=== PATIENT | female | born 1930 | race Caucasian/White ===

== ENCOUNTER 2016-04-02 19:47 | Emergency (ER) | payer MEDICARE, OTHER ==
[2016-04-02 20:06] VITALS: TEMP 97.6; BMI 16.9
[2016-04-02 20:23] LABS: AUTOMATED BASOPHIL 1.1 % (0-2); AUTOMATED EOSINOPHIL 0.4 % (0-5); AUTOMATED LYMPH 31.4 % (17-44); AUTOMATED MONOCYTE 5.1 % (3-10); MPV 8.9 fL (7.4-10.4)
[2016-04-02 20:26] LABS: PARTIAL THROMB. TIME 22.3 SEC (22-35)
[2016-04-02 20:37] LABS: BLOOD UREA NITROGEN 9 MG/DL (7-17); CALCIUM 9.4 MG/DL (8.4-10.2); CALCULATED OSMOLALITY 250 MOs/Kg (270-290); CHLORIDE 94 mEq/L (98-107); CPK TOTAL WITH POSSIBLE MB < 20 IU/L (30-134); GLUCOSE 138 MG/DL (70-99); SODIUM LEVEL 129 mEq/L (137-146); TOTAL PROTEIN 6.7 G/DL (6.3-8.2)
[2016-04-02] MEDS ORDERED: OXYCODONE HCL 5 MG TABLET PO ONE (21:03)
--- NOTE | 2016-04-02 21:05 | DIRPT ---
CLINICAL DATA: 86-year-old female with chest pain and lower abdominal pain for the past 2 weeks. Shortness of breath. EXAM: PORTABLE CHEST 1 VIEW COMPARISON: Chest x-ray 11/21/2015. FINDINGS: Lung volumes are normal. No consolidative airspace disease. No pleural effusions. No pneumothorax. No pulmonary nodule or mass noted. Pulmonary vasculature and the cardiomediastinal silhouette are within normal limits. Atherosclerosis in the thoracic aorta. IMPRESSION: 1. No radiographic evidence of acute cardiopulmonary disease. 2. Atherosclerosis. Electronically Signed By: Jj Tenorio M.D. On: 04/02/2016 21:02
[2016-04-02] MEDS ORDERED: LORAZEPAM 1 MG TAB PO ONE (21:43)
--- NOTE | 2016-04-02 21:53 | EDPRACDOC ---
- General Information Chief Complaint: Chest Pain Stated Complaint: CHEST PAIN Time Seen by Provider: 04/02/16 20:51 Information Source: Patient Mode of Arrival: Car Home Medications: Home Medications Denosumab [Prolia] 60 mg SQ .Q 6MONTHS 04/06/13 Losartan Potassium [Cozaar] 25 mg PO DAILY 04/06/13 Simvastatin [Zocor] 20 mg PO HS 04/06/13 Aspirin [Ecotrin] 81 mg PO DAILY 05/30/13 Travoprost (Benzalkonium) [Travatan 0.004% Eye Drop] 1 drop OU HS 05/30/13 FA/Mv,Ca,Iron,Min/Lycopene/Lut [Centrum Tablet] 1 tab PO DAILY 12/10/14 [place]-3 Fatty Acids/Fish Oil [Fish Oil 1,000 mg Capsule] 1 cap PO DAILY Quetiapine Fumarate [Seroquel] 50 mg PO HS 12/10/14 Vitamin B Complex [B Complex] 1 tab PO DAILY 03/27/15 Metformin HCl [Metformin HCl ER] 500 mg PO DAILY 08/10/15 Levothyroxine [Synthroid, Levoxyl] 75 mcg PO DAILY 08/24/15 Sodium Chloride 1 gm PO DAILY 08/24/15 Pantoprazole Sodium 40 mg PO BID 10/16/15 Temazepam [Restoril] 30 mg PO HS 10/16/15 Sucralfate [Carafate] 1 gm PO QID 11/09/15 Calcium Carbonate [Tums] 300 mg PO .TID AFTER MEALS 11/12/15 Polyethylene Glycol 3350 [Miralax] 17 gm PO DAILY PRN 11/12/15 Wheat Dextrin [Benefiber] 1 kennedy PO QAM 11/12/15 Gabapentin 100 mg PO DAILY 04/02/16 Lorazepam [Ativan] 1 mg PO BID #60 tab 04/02/16 Ranitidine HCl [Zantac] 300 mg PO DAILY #30 tablet 04/02/16 Allergies/Adverse Reactions: Allergies Allergy/AdvReac Type Severity Reaction Status Date / Time No Known Allergies Allergy Verified 11/21/15 15:34 - History of Present Illness Onset: 1 DAY HPI: PT PRESENTS TODAY WITH CP X 2 WEEKS. PT VERY POOR HISTORIAN AND FAMILY UNSURE WELL. PER FAMILY, PT HAS BEEN IN THE HOSPITAL SEVERAL TIMES OVER THE PAST 6 MONTHS WITH CP. SHE HAD RECENT ADMISSION TO [facility] FOR CARDIAC R/O AND "THEY DID 2 KINDS OF TESTS AND BOTH WERE NORMAL". PT STATES THAT HER ENTIRE CHEST WALL HURTS. PT RESTING UPON MY ARRIVAL, BUT WHEN I BEGIN THE EXAM, PT BREATHES HARDER AND STATES "MY CHEST HURTS". OLD RECORDS REVIEWED FELT THAT THIS WAS PREVIOUSLY CAUSED BY ANXIETY. DENIES FEVER, COUGH/CONGESTION, ABD PAIN , N/V/D. WILL OBTAIN OLD RECORDS FROM [facility]. Chest Pain Location: Reports: Right Chest, Left Chest Pain Radiation: Reports: None Symptoms Occur: Reports: Suddenly Cardiac History of: Reports: Stress Test Medications within 24 Hours: Reports: None Prehospital Care: Reports: None Pain Came On: Reports: Suddenly Pain Status: Present Now Pain Description: Reports: Aching Pain Severity: Moderate ED Past Medical History - History Reviewed Yes Nurses notes reviewed and agree except as marked - Patient Medical History Neurological History: Reports: Dementia. Denies: Cerebrovascular Accident Cardiac History: Reports: Hypertension, Hypercholesterolemia, Valvular Heart Disease Respiratory History: Reports: Pneumonia GI/ History: Reports: Renal Disease, Gastroesophageal Reflux, Diverticulosis Musculoskeletal History: Reports: Arthritis, Osteoarthritis Psychological History: Reports: Anxiety. Denies: Depression, Bipolar Disorder, Substance Use Disorder Systemic History: Reports: Diabetes Surgical History: Reports: Cholecystectomy (Just 5 days ago.), Tonsillectomy/ Adnoidectomy - Family Medical History Reports: Hypertension, Diabetes. Denies: Cancer, Stroke, Cardiac Disorders - Social Medical History Smoking Status: Never smoker Social History: Denies: Substance Use Disorder EDM Review of Systems - Review of Systems ROS Negative Except as Marked: Yes All systems reviewed and were negative except as marked ROS Unobtainable: Yes Hx Limited due to age/level of understanding of patient, Yes Limited due to inability of parents to provide information Constitutional: No Symptoms Reported Respiratory: No Symptoms Reported Cardiovascular: Chest Pain Gastrointestinal: No Symptoms Reported Neurological: No Symptoms Reported Musculoskeletal: No Symptoms Reported Integumentary: No Symptoms Reported - Physical Exam Constitutional: Alert, Agitated, Distress Oriented to: Unable to Test Last recorded Vital Signs: Last Vital Signs Temp 97.6 F 04/02/16 19:56 Pulse 85 04/02/16 20:53 Resp 20 04/02/16 20:53 BP 152/67 04/02/16 20:53 Pulse Ox 98 04/02/16 20:53 Oxygen Pulse Oxygen Saturation 98 O2 Device Room Air Oxygen Flow Rate Fraction of Inspired Oxygen ( FIO2) - HEENT Head: Normal Eye Exam: Normal Neck: Normal, Denies Pain, Midline - Respiratory/Cardiovascular Respiratory: Normal - CTA Cardiovascular: Normal - GI Palpation: Normal Tenderness: Non tender - Musculoskeletal Back: Normal Extremities: Normal - Integumentary Skin: Normal Lymphatics: Normal - Neurologic Cerebellar: Unable to Test Mood Description: Anxious Thought: Coherent ED Chest Pain Exam - Respiratory/Cardiovascular Respiratory: Normal - CTA Cardiovascular/Chest: Normal - Action ASA given in the ED: No - Re-evaluation Re-evaluation 1 Re-evaluation Time: 23:47 THROUGHOUT THE STAY, PT HAS HAD MULTIPLE DIFFERING COMPLAINTS OF "ALL OVER CHEST WALL PAIN" TO "BELLY BURNING" AND THEN STATING THAT SHE "JUST NEEDS TO EAT SOMETHING AND SHE WOULD BE FINE". PAIN IS FELT NOT TO BE CARDIAC RELATED. PT HAD CATH AT [facility] NOV 2014 AND WAS CLEAR. 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 CASE DISCUSSED WITH DR. MCKEON AND PT OK TO HOME. Re-evaluation 2 Re-evaluation Time: 00:18 PT NOW EATING AND STATES THAT SHE FEELS MUCH BETTER; I BELIEVE THIS IS MORE GI RELATED. RECORDS OBTAINED FROM [facility] AND PT HAD CLEAN CATH NOV 2014 - Results 04/02/16 20:05 04/02/16 20:05 WBC 4.3 xk/uL (3.8-10.8) 04/02/16 20:05 RBC 4.56 xM/uL (4.20-5.40) 04/02/16 20:05 Hgb 13.7 g/dL (12.0-16.0) 04/02/16 20:05 Hct 41.0 % (36-47) 04/02/16 20:05 MCV 90 fL (81-99) 04/02/16 20:05 MCH 30.0 pg (27-32) 04/02/16 20:05 MCHC 33.3 g/dl (33-36) 04/02/16 20:05 RDW 13.9 % (11.5-14.5) 04/02/16 20:05 Plt Count 190 xk/uL (130-400) 04/02/16 20:05 MPV 8.9 fL (7.4-10.4) 04/02/16 20:05 Neut % (Auto) 62.0 % (45-76) 04/02/16 20:05 Lymph % (Auto) 31.4 % (17-44) 04/02/16 20:05 [place] % (Auto) 5.1 % (3-10) 04/02/16 20:05 Eos % (Auto) 0.4 % (0-5) 04/02/16 20:05 Baso % (Auto) 1.1 % (0-2) 04/02/16 20:05 Absolute Neuts (auto) 2.67 xk/uL (1.7-8.2) 04/02/16 20:05 Absolute Lymphs (auto) 1.33 xk/uL (0.65-4.75) 04/02/16 20:05 PT 10.3 SEC (9.2-11.2) 04/02/16 20:05 INR 1.0 04/02/16 20:05 APTT 22.3 SEC (22-35) 04/02/16 20:05 Sodium 129 mEq/L (137-146) L 04/02/16 20:05 Potassium 4.7 mEq/L (3.5-5.1) 04/02/16 20:05 Chloride 94 mEq/L (98-107) L 04/02/16 20:05 Carbon Dioxide 26 mMOL/L (22-33) 04/02/16 20:05 Anion Gap 14 mEq/L (8-16) 04/02/16 20:05 BUN 9 MG/DL (7-17) 04/02/16 20:05 Creatinine 0.50 MG/DL (0.52-1.04) L 04/02/16 20:05 Estimated GFR (MDRD) > 60 mL/min (>=60) 04/02/16 20:05 Glucose 138 MG/DL (70-99) H 04/02/16 20:05 Calculated Osmolality 250 MOs/Kg (270-290) L 04/02/16 20:05 Calcium 9.4 MG/DL (8.4-10.2) 04/02/16 20:05 Total Bilirubin 0.5 MG/DL (0.2-1.3) 04/02/16 20:05 AST 24 IU/L (14-36) 04/02/16 20:05 ALT 24 IU/L (9-52) 04/02/16 20:05 Alkaline Phosphatase 57 IU/L (55-165) 04/02/16 20:05 Creatine Kinase < 20 IU/L (30-134) L 04/02/16 20:05 Troponin I < 0.01 ng/mL (<.04) 04/02/16 20:05 Otf-[id number]-Vyurjxeixyx Pept 378 pg/mL (0-1800) 04/02/16 20:05 Total Protein 6.7 G/DL (6.3-8.2) 04/02/16 20:05 Albumin 4.3 G/DL (3.5-5.0) 04/02/16 20:05 Lab Results 04/02/16 04/02/16 04/02/16 20:05 20:05 20:05 WBC 4.3 RBC 4.56 Hgb 13.7 Hct 41.0 MCV 90 MCH 30.0 MCHC 33.3 RDW 13.9 Plt Count 190 MPV 8.9 Neut % (Auto) 62.0 Lymph % (Auto) 31.4 [place] % (Auto) 5.1 Eos % (Auto) 0.4 Baso % (Auto) 1.1 Absolute Neuts (auto) 2.67 Absolute Lymphs (auto) 1.33 PT 10.3 INR 1.0 APTT 22.3 Sodium 129 L Potassium 4.7 Chloride 94 L Carbon Dioxide 26 Anion Gap 14 BUN 9 Creatinine 0.50 L Estimated GFR (MDRD) > 60 Glucose 138 H Calculated Osmolality 250 L Calcium 9.4 Total Bilirubin 0.5 AST 24 ALT 24 Alkaline Phosphatase 57 Creatine Kinase < 20 L Troponin I < 0.01 Ckv-[id number]-Zmmjierderq Pept 378 Total Protein 6.7 Albumin 4.3 Laboratory Results - last 24 hr 04/02/16 04/02/16 04/02/16 20:05 20:05 20:05 WBC 4.3 RBC 4.56 Hgb 13.7 Hct 41.0 MCV 90 MCH 30.0 MCHC 33.3 RDW 13.9 Plt Count 190 MPV 8.9 Neut % (Auto) 62.0 Lymph % (Auto) 31.4 [place] % (Auto) 5.1 Eos % (Auto) 0.4 Baso % (Auto) 1.1 Absolute Neuts (auto) 2.67 Absolute Lymphs (auto) 1.33 PT 10.3 INR 1.0 APTT 22.3 Sodium 129 L Potassium 4.7 Chloride 94 L Carbon Dioxide 26 Anion Gap 14 BUN 9 Creatinine 0.50 L Estimated GFR (MDRD) > 60 Glucose 138 H Calculated Osmolality 250 L Calcium 9.4 Total Bilirubin 0.5 AST 24 ALT 24 Alkaline Phosphatase 57 Creatine Kinase < 20 L Troponin I < 0.01 [id number]-[id number]-Afclvllgdpx Pept 378 Total Protein 6.7 Albumin 4.3 Laboratory Results 04/02/16 20:05 04/02/16 20:05 - EKG EKG #1 EKG Time: 20:00 -: Yes EKG interpreted by me Rate: bpm: 76 [place]: Normal Rhythm: NSR Block: None Hypertrophy: None ST: Normal Decision Time to Discharge: 23:49 - Departure Disposition: Home Final Diagnosis: Atypical chest pain GERD (gastroesophageal reflux disease) Qualifiers: Esophagitis presence: esophagitis presence not specified Qualified Code(s): K21.9 - Gastro-esophageal reflux disease without esophagitis Instructions: Chest Pain (ED), Chest Wall Pain Education/Counseling Given To: Patient, Family Member Education/Counseling Given Regarding: Diagnosis, Treatment, Follow Up Referrals: Joana Everett MD [Primary Care Provider] - One Week Prescriptions: Lorazepam [Ativan] 1 mg PO BID #60 tab Ranitidine HCl [Zantac] 300 mg PO DAILY #30 tablet Additional Instructions: REST AND PLENTY OF FLUIDS. PLEASE FOLLOW UP WITH PCP IN 2-3 DAYS.
[2016-04-02] MEDS ORDERED: NITROGLYCERINE 2 % OINTMENT PACK TOP ONE (22:48)
[2016-04-02] MEDS ORDERED: GI COCKTAIL 30 ML DOSE PO ONE (22:56)
[2016-04-02] MEDS ORDERED: Famotidine 20 mg/50 ml RTU 20 MG/50 ML IVB IV ONE (22:56)
[2016-04-02] MEDS ORDERED: NITROGLYCERINE 0.4 MG TAB SL SCH (23:00)
[2016-04-02 23:22] LABS: LEUKOCYTES/URINE NEG (NEGATIVE); NITRITE/URINE NEG (NEGATIVE); URINE OCCULT BLOOD NEG (NEG/TRACE)
[2016-04-02 23:27] LABS: AMORPHOUS 1+
[2016-04-02 23:53] LABS: CPK TOTAL WITH POSSIBLE MB < 20 IU/L (30-134)
[2016-04-03 00:47] VITALS: BP 121/63; PULSE 84
== END 2016-04-03 00:47 | disposition home or self-care (01) ==
LOC: ED 19:47
DX: K21.9 Gastro-esophageal reflux disease without esophagitis (principal); R07.89 Other chest pain; I38 Endocarditis, valve unspecified
CPT/HCPCS: 36415; 71010; 80053; 81001; 82550; 83880; 84484; 85025; 85610; 85730; 93005; 96365; 99285; A9270; J3490; S0028